=== PATIENT | female | born 1945 ===

== ENCOUNTER 2025-01-17 12:00 | Inpatient (IN) | payer OTHER ==
[~2025-01-17] VITALS: Ht 182.9 cm; Wt 61.7 kg
[2025-01-17] MEDS ORDERED: COZAAR100 MG PO (14:00)
[2025-01-17] MEDS ORDERED: SERTRALINE20 MG/1 ML (14:00)
[2025-01-17] MEDS ORDERED: PROTONIX40 MG PO (14:00)
[2025-01-17] MEDS ORDERED: NORVASC5 MG PO (14:01)
[2025-01-17] MEDS ORDERED: TOPROL XL50 M1 PO (14:01)
[2025-01-17] MEDS ORDERED: LIPITOR40 M1 PO (14:02)
[2025-01-17] MEDS ORDERED: CARDURA1 MG PO (14:02)
[2025-01-17] MEDS ORDERED: PLAVIX75 MG PO (14:03)
[2025-01-17] MEDS ORDERED: VITAMIN B-1000 MCG/3 PO (14:04)
[2025-01-21 10:32] VITALS: BP 148/63; O2SAT 97
[2025-01-21] MEDS ORDERED: RINGERS SOLUTION,LACTATED 1,000 ML IV SCH (11:00)
[2025-01-21] MEDS ORDERED: FUROsemide 20 MG/2 ML VIAL IV SCH (11:00)
[2025-01-21 12:34] LABS: HEMATOCRIT 25.4 % (36.0-45.00); HEMOGLOBIN 8.2 g/dL (12.0-15.00); MEAN CELL VOLUME 92.7 fL (80.00-100.00); MEAN CORPUSCULAR HGB CONC 32.3 g/dl (32.0-36.0); PLATELET COUNT 246 K/uL (150-450); RED BLOOD COUNT 2.73 M/uL (4.00-6.00); RED CELL DISTRIBUTION WIDTH 16.6 % (11.5-14.5)
[2025-01-21 16:01] VITALS: BP 153/78; O2SAT 96
[2025-01-21] MEDS ORDERED: DOXAZOSIN MESYLATE 2 MG TABLET PO SCH (21:00)
[2025-01-21] MEDS ORDERED: FAMOTIDINE/PF 20 MG/2 ML VIAL IV SCH (21:00)
[2025-01-22 00:33] VITALS: BP 129/74; O2SAT 97
[2025-01-22 08:00] VITALS: BP 168/74; O2SAT 95
[2025-01-22] MEDS ORDERED: METOPROLOL SUCCINATE 50 MG TAB.SR.24H PO SCH (09:00)
[2025-01-22] MEDS ORDERED: SOD FERRIC GLUC COMPLX/SUCROSE 62.5 MG in 0.9 % SODIUM CHLORIDE 50 ML IV SCH (09:00)
[2025-01-22] MEDS ORDERED: ENALAPRILAT DIHYDRATE 1.25 MG/ML VIAL IV PRN (11:00)
[2025-01-22] MEDS ORDERED: POLYETHYLENE GLYCOL 3350 238 GM POWDER PO NR (14:00)
[2025-01-22 16:41] VITALS: BP 150/84; O2SAT 100
[2025-01-22] MEDS ORDERED: BISACODYL 5 MG TABLET.EC PO SCH (21:00)
[2025-01-23 00:50] VITALS: BP 117/66; O2SAT 94
[2025-01-23 02:50] LABS: HEMOGLOBIN 11.2 g/dL (12.0-15.00); MEAN CELL VOLUME 90.4 fL (80.00-100.00); MEAN CORPUSCULAR HEMOGLOBIN 30.6 pg (27.00-32.0); MEAN CORPUSCULAR HGB CONC 33.9 g/dl (32.0-36.0); PLATELET COUNT 245 K/uL (150-450); RED BLOOD COUNT 3.65 M/uL (4.00-6.00); RED CELL DISTRIBUTION WIDTH 16.4 % (11.5-14.5)
[2025-01-23] MEDS ORDERED: MINERAL OIL 133 ML ENEMA RECTAL SCH (05:00)
[2025-01-23 08:00] VITALS: BP 122/72; O2SAT 96
[2025-01-23 10:12] LABS: URINE APPEARANCE Clear; URINE BILIRRUBIN Negative (NEGATIVE); URINE BLOOD Moderate; URINE COLOR Yellow; URINE GLUCOSE Negative (NEGATIVE); URINE KETONE 15 (NEGATIVE); URINE LEUKOCYTE Trace; URINE NITRATE Negative; URINE PROTEIN Trace (NEGATIVE); URINE UROBILINOGEN 0.2 E.U./dl
[2025-01-23 10:13] LABS: INR 1.05; PARTIAL THROMBOPLASTIN TIME 27.4 SECONDS (22.0-34.0); PROTHROMBIN TIME 11.4 SECONDS (9.0-11.5)
[2025-01-23 10:13] LABS: URINE BACTERIA 3280.1 uL (0.0-1933); URINE EPITHELIAL CELLS 25.1 uL (0.0-38.8); URINE RBC 70.8 uL (0.0-20.8); URINE WBC 31.9 uL (0.0-23.2)
[2025-01-23 10:26] LABS: URINE CAST 0.73 uL (0.0-1.40)
[2025-01-23] MEDS ORDERED: CEFTRIAXONE SODIUM 2,000 MG VIAL IV ONE (13:00)
[2025-01-23] MEDS ORDERED: BUPIVACAINE HCL 30 ML VIAL IJ ONE (13:00)
[2025-01-23] MEDS ORDERED: LIDOCAINE HCL 1% 20 ML VIAL IJ ONE (13:00)
[2025-01-23] MEDS ORDERED: METRONIDAZOLE/SODIUM CHLORIDE 500 MG/100 ML PIGGYBACK IV ONE (13:00)
[2025-01-23] MEDS ORDERED: SUGAMMADEX SODIUM 200 MG/2 ML VIAL IV ONE (15:07)
[2025-01-23] MEDS ORDERED: ONDANSETRON HCL 2 MG/ML VIAL IV PRN (15:45)
[2025-01-23] MEDS ORDERED: MORPHINE SULFATE 4 MG/ML CARTRIDGE IV PRN (15:45)
[2025-01-23] MEDS ORDERED: RINGERS SOLUTION,LACTATED 1,000 ML IV SCH (15:45)
[2025-01-23] MEDS ORDERED: OxyCODONE HCL 5 MG TABLET (ROXICODONE) PO PRN (15:45)
[2025-01-23] MEDS ORDERED: GABAPENTIN 300 MG CAPSULE PO SCH (17:00)
[2025-01-23] MEDS ORDERED: CELECOXIB 200 MG CAPSULE PO SCH (17:00)
[2025-01-23] MEDS ORDERED: SIMETHICONE 125 MG CAPSULE PO SCH (17:00)
[2025-01-23] MEDS ORDERED: POLYETHYLENE GLYCOL 3350 17 GM BLIST.PACK PO SCH (17:00)
[2025-01-23] MEDS ORDERED: HYOSCYAMINE SULFATE 0.125 MG TAB.SUBL SL SCH (17:00)
[2025-01-23] MEDS ORDERED: METOCLOPRAMIDE HCL 5 MG/ML VIAL IV SCH (17:00)
[2025-01-23] MEDS ORDERED: MORPHINE SULFATE 4 MG/ML VIAL IV ONE (17:45)
[2025-01-23] MEDS ORDERED: METOCLOPRAMIDE HCL 5 MG/ML VIAL ONE (18:13)
[2025-01-23 18:21] LABS: HEMATOCRIT 36.3 % (36.0-45.00); HEMOGLOBIN 11.9 g/dL (12.0-15.00); MEAN CELL VOLUME 91.2 fL (80.00-100.00); MEAN CORPUSCULAR HEMOGLOBIN 29.8 pg (27.00-32.0); MEAN CORPUSCULAR HGB CONC 32.7 g/dl (32.0-36.0); PLATELET COUNT 231 K/uL (150-450); RED BLOOD COUNT 3.98 M/uL (4.00-6.00); RED CELL DISTRIBUTION WIDTH 16.7 % (11.5-14.5)
[2025-01-23 18:40] VITALS: BP 138/69; O2SAT 95
[2025-01-23] MEDS ORDERED: ACETAMINOPHEN 500 MG GEL..CAP PO SCH (20:00)
[2025-01-23] MEDS ORDERED: FAMOTIDINE/PF 20 MG/2 ML VIAL IV PUSH SCH (21:00)
[2025-01-24] VITALS: BP 111/56; O2SAT 95
[2025-01-24 06:52] LABS: HEMATOCRIT 31.7 % (36.0-45.00); HEMOGLOBIN 10.2 g/dL (12.0-15.00); MEAN CELL VOLUME 91.9 fL (80.00-100.00); MEAN CORPUSCULAR HEMOGLOBIN 29.7 pg (27.00-32.0); MEAN CORPUSCULAR HGB CONC 32.3 g/dl (32.0-36.0); PLATELET COUNT 205 K/uL (150-450); RED BLOOD COUNT 3.45 M/uL (4.00-6.00)
[2025-01-24 07:27] LABS: ALBUMIN 2.9 gm/dL (3.4-5.0); CALCIUM 8.8 mg/dL (8.5-10.1); CREATININE SERUM 1.17 mg/dL (0.55-1.02); GFR 44.51; MAGNESIUM 2.1 mg/dL (1.8-2.4); PHOSPHOROUS 5.5 mg/dL (2.5-4.9); POTASSIUM 4.76 mEq/L (3.5-5.1)
[2025-01-24 08:00] VITALS: BP 91/45; O2SAT 95
[2025-01-24] MEDS ORDERED: SERTRALINE HCL 50 MG TABLET PO SCH (09:00)
[2025-01-24] MEDS ORDERED: LACTOBACILLUS ACIDOPHILUS 1 CAP CAP PO SCH (09:00)
[2025-01-24] MEDS ORDERED: LACTULOSE 20 G/30 ML BLIST.PACK PO SCH (09:00)
[2025-01-24 09:10] VITALS: BP 110/61
[2025-01-24] MEDS ORDERED: ATORVASTATIN CALCIUM 40 MG TABLET PO SCH (17:00)
[2025-01-24] MEDS ORDERED: ENOXAPARIN SODIUM 40 MG/0.4 ML SYRINGE SUBCUTANEO SCH (17:00)
[2025-01-24] MEDS ORDERED: GABAPENTIN 100 MG CAPSULE PO SCH (17:00)
[2025-01-24 17:13] VITALS: BP 112/52; O2SAT 97
[2025-01-24] MEDS ORDERED: LOSARTAN POTASSIUM 100 MG TABLET PO SCH (21:00)
[2025-01-24] MEDS ORDERED: GABAPENTIN 300 MG CAPSULE PO SCH (21:00)
[2025-01-24 23:52] VITALS: BP 113/56; O2SAT 97
[2025-01-25 07:34] LABS: HEMATOCRIT 28.5 % (36.0-45.00); HEMOGLOBIN 9.4 g/dL (12.0-15.00); MEAN CELL VOLUME 92.2 fL (80.00-100.00); MEAN CORPUSCULAR HEMOGLOBIN 30.4 pg (27.00-32.0); PLATELET COUNT 180 K/uL (150-450); RED BLOOD COUNT 3.09 M/uL (4.00-6.00); RED CELL DISTRIBUTION WIDTH 16.2 % (11.5-14.5)
[2025-01-25 07:46] VITALS: BP 120/55; O2SAT 94; O2SAT 97
[2025-01-25 08:00] LABS: CALCIUM 8.7 mg/dL (8.5-10.1); CREATININE SERUM 1.27 mg/dL (0.55-1.02); GFR 40.49; PHOSPHOROUS 2.7 mg/dL (2.5-4.9); POTASSIUM 4.63 mEq/L (3.5-5.1)
[2025-01-25] MEDS ORDERED: 0.9 % SODIUM CHLORIDE 1,000 ML IV SCH (08:15)
[2025-01-25] MEDS ORDERED: ENOXAPARIN SODIUM 40 MG/0.4 ML SYRINGE SUBCUTANEO SCH (09:00)
[2025-01-25 15:59] VITALS: BP 113/64; O2SAT 95
[2025-01-25] MEDS ORDERED: FAMOtidine 20 MG TABLET PO SCH (21:00)
[2025-01-26 00:22] VITALS: BP 143/67; O2SAT 95
[2025-01-26 08:34] VITALS: BP 109/61; O2SAT 98
[2025-01-26] MEDS ORDERED: FAMOtidine 20 MG TABLET PO SCH (09:00)
[2025-01-26] MEDS ORDERED: LOSARTAN POTAS100 MG PO (15:11)
[2025-01-26] MEDS ORDERED: DOXAZOSIN MESYLA2 MG PO (15:11)
[2025-01-26] MEDS ORDERED: LIPITOR40 M1 PO (15:11)
[2025-01-26] MEDS ORDERED: SERTRALINE HCL50 MG PO (15:11)
[2025-01-26] MEDS ORDERED: GABAPENTIN100 MG PO (15:11)
[2025-01-26] MEDS ORDERED: FAMOTIDINE20 MG PO (15:11)
[2025-01-26] MEDS ORDERED: INTESTINEX680 M1 PO (15:11)
[2025-01-26] MEDS ORDERED: TOPROL XL50 M1 PO (15:11)
[2025-01-26] MEDS ORDERED: ABANEU-SL TABL1 EACH SL (15:11)
[2025-01-26] MEDS ORDERED: FUSION PLUS CA1 EACH PO (15:11)
[2025-01-26 15:57] VITALS: BP 147/70; O2SAT 95
== END 2025-01-26 18:07 | disposition home or self-care (01) | DRG 331 ==
LOC: SURH 01-21 09:29 → SURG 01-21 09:29 → SURH 01-23 12:00 → SURG 01-26 18:07
PROVIDERS: Colon & Rectal Surgery; ADMIT Internal Medicine Geriatric Medicine; ATTEND Internal Medicine Geriatric Medicine
PROC: 30233N1 Transfusion of Nonautologous Red Blood Cells into Peripheral Vein, Percutaneous Approach (ICD-10-PCS; 2025-01-21)
PROC: 0DTF4ZZ Resection of Right Large Intestine, Percutaneous Endoscopic Approach (ICD-10-PCS; principal; 2025-01-23 09:00)
DX: C18.2 Malignant neoplasm of ascending colon (principal); D64.9 Anemia, unspecified; I10 Essential (primary) hypertension
CPT/HCPCS: 44204; 38570; 36430; S2900